=== PATIENT | male | born 1980 | race Caucasian/White ===

== ENCOUNTER 2025-02-24 08:16 | Outpatient (OUT) | payer BC, SELFPAY ==
--- OUTSIDE RECORDS SUMMARY | 2025-02-17 14:15 | XMS_ITS | Encounter Summary ---
Author Organization [facility] Address [address] [place] [address] Care Team Providers Care Fisher Diver Net Name Role Phone Kristian Pate MD Primary Care Provider [phone] Reason for Referral * Medications - Authorized Specialty Diagnoses / Procedures Referred By Jessica head Referred To Contact Diagnoses Class 3 severe obesity due to excess calories with serious comorbidity and body mass index (BMI) of 45.0 to 49.9 in adult ([facility]) Kristian Pate MD [address] [place] [address] Phone: tel: fax: Referral ID Status Reason Start Date Expiration Date V isits Requested Visits Authorized [id number] Authorized 01/18/2025 02/17/2026 1 1 Reason for Visit * Reason Comments Follow-up Med refillsWeight lo ss options Encounter Details Date Type Department Care Team (Late st Contact Info) Description 02/17/2025 2:15 PM EDT Office Visit [facility] [address] [place] [phone] Kristian Pate MD [address] [place] [address] Annual physical exam (Primary Dx); JJ (generalized anxiety disorder) ; Class 3 severe obesity due to excess calories with serious comorbidity and body mass index (BMI) of 45.0 to 49.9 in adult ([facility]) Social History Tobacco Use Types Packs/Day Years Used Date Smoking Tobacco: Never Smokeless Tobacco: Never Tobacco Cessation:Counseling Given: Not Answered Sex and Gender Information Value Date Recorded Sex Assigned at Not on file Legal Sex Male 7:08 PM EDT Gender Identity Not on file Sexual Orientation Not on file documented as of this encounter Last Filed Vital Signs Vital Sign Reading Time Taken Comments Blood Pressure 136/78 02/17/2025 2:31 PM EDT Pulse 82 02/17/2025 2:31 PM EDT Temperature 36.4 C (97.5 F) 02/17/2025 2:31 PM EDT Respiratory Rate 22 02/17/2025 2:31 PM EDT Oxygen Saturation 98% 02/17/2025 2:31 PM EDT Inhaled Oxygen Concentration - - Weight 141 kg (311 lb) 02/17/2025 2:31 PM EDT Height 172.7 cm (5' 8 ) 02/17/2025 2:31 PM EDT Body Mass Index 47.29 02/17/2025 2:31 PM EDT documented in this encounter Progress Notes * Kristian Pate MD - 02/17/2025 3:42 PM EDTAssociated Problem(s): JJ (generalized anxiety disorder) Symptoms slightly worse and increase celexa. * Kristian Pate MD - 02/17/2025 3:42 PM EDTAssociated Problem(s): Class 3 severe obesity due to excess calories with serious comorbidity and body mass index (BMI) of 45.0 to 49.9 in adult ([facility]) Discussed proper diet and regular aerobic exercise. Recommend Weight Watchers and need to limit calories and smaller portions. Need to increase activity and regular aerobic exercise several days a week for 30 minutes at a time. Try wegovy. * Kristian Pate MD - 02/17/2025 3:42 PM EDTAssociated Problem(s): Annual physical exam Due for labs. Discussed proper diet and regular aerobic exercise. Need aerobic exercise 5-6 days a week for 30 minutes at a time. Smaller portions and limit total calories. Colonoscopy after age 45. Tetanus every 10 years. Advised not to smoke. * Kristian Pate MD - 02/17/2025 2:15 PM EDT Images from the original note were not included. Subjective Patient ID: Emre Cruz is a 44 y.o. male who presents for Follow-up (Med refills/Weight loss options). Presents for annual PE. Last seen 08/02/2020. Overall doing okay. Recently started to exercise and weight down 20 pounds. Tries to watch diet and eat healthy. Increased fruits and vegetables. Smaller portions and limits snacking. Tries to limit total daily calories. Interested in medication for weight loss. Due for labs. Anxiety stable. Not as stressed out or overwhelmed. Not as nervous or worry as much. Not as [place] or irritable. Still occasional symptoms and wants to try higher dose celexa. Review of Systems Constitutional: Negative for fatigue. Respiratory: Negative for cough, shortness of breath and wheezing. Cardiovascular: Negative for chest pain and palpitations. Gastrointestinal: Negative for abdominal pain, diarrhea, nausea and vomiting. Genitourinary: Negative for dysuria. Objective Physical Exam Constitutional: General: He is not in acute distress. Appearance: Normal appearance. HENT: Head: Normocephalic. Right Ear: Tympanic membrane and ear canal normal. Left Ear: Tympanic membrane and ear canal normal. Eyes: Extraocular Movements: Extraocular movements intact. Pupils: Pupils are equal, round, and reactive to light. Cardiovascular: Rate and Rhythm: Normal rate and regular rhythm. Heart sounds: No murmur heard. No friction rub. No gallop. Pulmonary: Breath sounds: Normal breath sounds. No wheezing, rhonchi or rales. Abdominal: General: Bowel sounds are normal. There is no distension. Palpations: Abdomen is soft. Tenderness: There is no abdominal tenderness. There is no guarding or rebound. Musculoskeletal: General: Normal range of motion. Left lower leg: No edema. Neurological: General: No focal deficit present. Mental Status: He is alert. Cranial Nerves: No cranial nerve deficit. Deep Tendon Reflexes: Reflexes normal. Assessment/Plan Problem List Items Addressed This Visit JJ (generalized anxiety disorder) Symptoms slightly worse and increase celexa. Relevant Medications citalopram (CeleXA) 40 MG tablet Class 3 severe obesity due to excess calories with serious comorbidity and body mass index (BMI) of45.0 to 49.9 in adult ([facility]) Discussed proper diet and regular aerobic exercise. Recommend Weight Watchers and need to limit calories and smaller portions. Need to increase activity and regular aerobic exercise several days a week for 30 minutes at a time. Try wegovy. Relevant Medications Semaglutide-Weight Management (Wegovy) 0.25 MG/0.5ML solution auto-injector Annual physical exam - Primary Due for labs. Discussed proper diet and regular aerobic exercise. Need aerobic exercise 5-6 days a week for 30 minutes at a time. Smaller portions and limit total calories. Colonoscopy after age 45. Tetanus every 10 years. Advised not to smoke. Relevant Orders Hemoglobin A1c Basic metabolic panel CBC and differential Hepatic function panel Lipid panel TSH PSA documented in this encounter Plan of Treatment Upcoming Encounters Date Type Department Care Team (Late st Contact Info) Description 05/20/2025 9:30 AM EST Office Visit [facility] [address] [place] [address] Kristian Pate MD [address] [place] [address] Scheduled Orders Name Type Priority Associated Diagnoses Orde r Schedule Hemoglobin A1c Lab Routine Annual physical exam Expected: 02/17/2025 (Approximate), Expires: 02/17/2026 Basic metabolic panel Lab Routine Annual physical exam Expected: 02/17/2025 (Approximate), Expires: 02/17/2026 CBC and differential Lab Routine Annual physical exam Expected: 02/17/2025 (Approximate), Expires: 02/17/2026 Hepatic function panel Lab Routine Annual physical exam Expected: 02/17/2025 (Approximate), Expires: 02/17/2026 Lipid panel Lab Routine Annual physical exam Expected: 02/17/2025 (Approximate), Expires: 02/17/2026 TSH Lab Routine Annual physical exam Expected: 02/17/2025 (Approximate), Expires: 02/17/2026 PSA Lab Routine Annual physical exam Expected: 02/17/2025 (Approximate), Expires: 02/17/2026 documented as of this encounter Visit Diagnoses Diagnosis Annual physical exam- Primary Routine general medical examination at a health care facility JJ (generalized anxiety disorder) Generalized anxiety disorder Class 3 severe obesity due to excess calories with serious comorbidity and body mass index (BMI) of 45.0 to 49.9 in adult ([facility]) documented in this encounter Care Teams Fisher Diver Net Relationship Specialty Start Date End Date Kristian Pate MD [address] [place] [address] PCP - General Family Medicine 02/13/25 documented as of this encounter
--- OUTSIDE RECORDS SUMMARY | 2025-02-24 08:19 | XMS_ITS | Clinical Summary ---
Author Organization [facility] Address [address] [place] [address] Care Team Providers Care Washcloth Folder Name Role Phone Kristian Pate MD Primary Care Provider [phone] Allergies No known active allergies Medications Semaglutide-Weig ht Management (Wegovy) 0.25 MG/0.5ML solution auto-injectorInd ications:Class 3 severe obesity due to excess calories with serious comorbidity and body mass index (BMI) of 45.0 to 49.9 in adult ([facility]) Inject 0.25 mg under the skin 1 (one) time per week 2 mL 5 Active citalopram (CeleXA) 40 MG tabletIndication s:JJ (generalized anxiety disorder) Take 1 tablet (40 mg) by mouth Daily 30 tablet 5 5 Active citalopram (CeleXA) 20 MG tabletIndication s:Generalized anxiety disorder Take 1 tablet (20 mg) by mouth Daily 30 tablet 11 4 02/18/20 25 Discontinu ed(Reorder ) Active Problems Problem Noted Date Diagnosed Date Prediabetes 02/17/2025 JJ (generalized anxiety disorder) 02/17/2025 Assessment & Plan (02/17/2025 3:42 PM EDT): Symptoms slightly worse and increase celexa. Class 3 severe obesity due t o excess calories with serious comorbidity and body mass index (BMI) of 45.0 to 49.9 in adult 02/17/2025 Assessment & Plan (02/17/2025 3:42 PM EDT): Discussed proper diet and regular aerobic exercise. Recommend Weight Watchers and need to limit calories and smaller portions. Need to increase activity and regular aerobic exercise several days a week for 30 minutes at a time. Try wegovy. Annual physical exam 02/17/2025 Assessment & Plan (02/17/2025 3:42 PM EDT): Due for labs. Discussed proper diet and regular aerobic exercise. Need aerobic exercise 5-6 days a week for 30 minutes at a time. Smaller portions and limit total calories. Colonoscopy after age 45. Tetanus every 10 years. Advised not to smoke. Encounters Date Type Department Care Team Description 02/17/2025 2:15 PM EDT Office Visit [facility] [address] [place] [address] Kristian Pate MD Annual physical exam (Primary Dx); JJ (generalized anxiety disorder) ; Class 3 severe obesity due to excess calories with serious comorbidity and body mass index (BMI) of 45.0 to 49.9 in adult ([facility]) 02/17/2025 Refill [facility] [address] [place] [address] Kristian Pate MD Generalized anxiety disorder 02/13/2025 Refill [facility] [address] [place] [address] Kristian Pate MD Generalized anxiety disorder 12/19/2024 Refill [facility] [address] [place] [address] Kristian Pate MD 12/16/[address] [facility] [address] [place] [address] Kristian Pate MD from Last 3 Months Social History Tobacco Use Types Packs/Day Years Used Date Smoking Tobacco: Never Smokeless Tobacco: Never Tobacco Cessation:Counseling Given: Not Answered Sex and Gender Information Value Date Recorded Sex Assigned at Not on file Legal Sex Male 7:08 PM EDT Gender Identity Not on file Sexual Orientation Not on file Last Filed Vital Signs Vital Sign Reading [...] Mass Index 47.29 02/17/2025 2:31 PM EDT Plan of Treatment Upcoming Encounters Date Type Department Care Team (Late st Contact Info) Description 05/20/2025 9:30 AM EST Office Visit [facility] [address] [place] [phone] Kristian Pate MD [address] [place] [address] Health Maintenance Due Date Last Done Comments Influenza Vaccine (#1) 2025 04/28/2016 Insurance Care Teams Washcloth Folder Relationship Specialty Start Date End Date Kristian Pate MD [address] [place] [address] PCP - General Family Medicine 02/13/25
--- OUTSIDE RECORDS SUMMARY | 2025-02-24 08:19 | XMS_ITS | Clinical Summary ---
Author Organization [employer] tem Address [id number] [address] [place] [address] Care Team Providers Care Carbon Blocks Press Operator Name Role Phone Kristian Pate MD Primary Care Provider [phone] Allergies No known active allergies Medications No known medications Social History Tobacco Use Types Packs/Day Years Used Date Smoking Tobacco: Never Smokeless Tobacco: Never Alcohol Use Standard Drinks/Week Comments Not Currently 0 (1 standard drink = 0.6 oz pur e alcohol) Childcare Answer Date Recorded Childcare Unknown 12/26/2018 Employment Answer Date Recorded Employment Unknown 12/26/2018 Sex and Gender Information Value Date Recorded Sex Assigned at Not on file Legal Sex Male 11:29 AM EDT Gender Identity Not on file Sexual Orientation Not on file Last Filed Vital Signs Vital Sign Reading Time Taken Comments Blood Pressure 143/81 03/24/2021 2:10 AM EDT Pulse 97 03/24/2021 2:10 AM EDT Temperature 37.8 C (100 F) 03/23/2021 8:17 PM EDT Respiratory Rate 17 03/24/2021 12:40 AM EDT Oxygen Saturation 94% 03/24/2021 2:10 AM EDT Inhaled Oxygen Concentration - - Weight 136.1 kg (300 lb) 03/23/2021 8:17 PM EDT Height 172.7 cm (5' 8 ) 03/23/2021 8:17 PM EDT Body Mass Index 45.61 03/23/2021 8:17 PM EDT Plan of Treatment Health Maintenance Due Date Last Done Comments Depression Screening 1992 Tobacco Screening 1992 Adult BMI Screening 1998 DTaP,Tdap and Td Vaccines (1 - Tdap) 1999 Influenza Vaccine 03/17/2025 04/28/2016 Medical Devices Not on file Insurance [employer] Care Teams Carbon Blocks Press Operator Relationship Specialty Start Date End Date Kristian Pate MD PCP - General Family Medicine 03/23/21
--- OUTSIDE RECORDS SUMMARY | 2025-02-24 08:19 | XMS_ITS | Encounter Summary ---
Author Organization [facility] Address [address] [place] [id number] Care Team Providers Care Account Executive Trainee Name Role Phone Kristian Pate MD Primary Care Provider [phone] Reason for Visit * Reason Onset Date Comments Med Refill 02/13/2025 Encounter Details Date Type Department Care Team (Late Contact Info) Description 02/13/2025 [facility]ill [facility] [address] [place] [address] Kristian Pate MD [address] [place] [address] Generalized anxiety disorder Social History Tobacco Use Types Packs/Day Years Used Date Smoking Tobacco: Never Assessed Sex and Gender Information Value Date Recorded Sex Assigned at Not on file Legal Sex Male 7:08 PM EDT Gender Identity Not on file Sexual Orientation Not on file documented as of this encounter Plan of Treatment Upcoming Encounters Date Type Department Care Team (Late Contact Info) Description 05/20/2025 9:30 AM EST Office Visit [facility] [address] [place] [phone] Kristian Pate MD [address] [place] [address] documented as of this encounter Visit Diagnoses Diagnosis Generalized anxiety disorder Generalized anxiety disorder documented in this encounter Care Teams Account Executive Trainee Relationship Specialty Start Date End Date Kristian Pate MD [address] [place] [address] PCP - General Family Medicine 02/13/25 documented as of this encounter
--- OUTSIDE RECORDS SUMMARY | 2025-02-24 08:19 | XMS_ITS | Encounter Summary ---
Author Organization [facility] Address [address] [place] [address] Care Team Providers Care Makeup Sales Consultant Name Role Phone Kristian Pate MD Primary Care Provider [phone] Reason for Visit * Reason Onset Date Comments Med Refill 02/17/2025 Encounter Details Date Type Department Care Team (Late Contact Info) Description 02/17/2025 Refill [facility] [address] [place] [phone] Kristian Pate MD [address] [place] [address] Generalized anxiety disorder Social History Tobacco Use Types Packs/Day Years Used Date Smoking Tobacco: Never Smokeless Tobacco: Never Sex and Gender Information Value Date Recorded Sex Assigned at Not on file Legal Sex Male 7:08 PM EDT Gender Identity Not on file Sexual Orientation Not on file documented as of this encounter Plan of Treatment Upcoming Encounters Date Type Department Care Team (Late st Contact Info) Description 05/20/2025 9:30 AM EST Office Visit [facility] [address] [place] [phone] Kristian Pate MD [address] [place] [address] documented as of this encounter Visit Diagnoses Diagnosis Generalized anxiety disorder Generalized anxiety disorder documented in this encounter Care Teams Makeup Sales Consultant Relationship Specialty Start Date End Date Kristian Pate MD [address] [place] [address] PCP - General Family Medicine 02/13/25 documented as of this encounter
[2025-02-24 09:09] LABS: Hematocrit 42.4 % (42.0-54.0); Hemoglobin 14.0 g/dL (14.0-18.0); Immature Granulocytes Abs Auto 0.03 10^3/uL (0.00-0.03); Immature Granulocytes Pct Auto 0.4 % (0.0-0.5); Lymphocytes Absolute Auto 3.5 10^3/uL (1.2-3.8); Mean Corpuscular HGB Conc 33.0 g/dL (29.9-35.2); Mean Corpuscular Hemoglobin 29.0 pg (25.9-34.0); Mean Corpuscular Volume 88.0 fL (80.0-94.0); Platelet Count 220 10^3/uL (150-450); Red Blood Count 4.82 10^6/uL (4.70-6.10); White Blood Count 8.4 10^3/uL (4.0-11.0)
[2025-02-24 09:25] LABS: Alanine Aminotransferase 39 U/L (16-63); Albumin Globulin Ratio 0.9; Albumin Level 3.6 g/dL (3.4-5.0); Alkaline Phosphatase 80 U/L (46-116); Anion Gap 13.3; Aspartate Amino Transferase 20 U/L (15-37); Blood Urea Nitrogen 18.0 mg/dL (7.0-18.0); Calcium 9.1 mg/dL (8.5-10.1); Carbon Dioxide 28.3 mmol/L (21.0-32.0); Chloride 104 mmol/L (98-107); Cholesterol 188 mg/dL (<=200); Estimated GFR (African America >60 (>=60 mL/min/1.73m^2); Estimated GFR (Non-African Ame >60 (>=60 mL/min/1.73m^2); Globulin 4.1 g/dL; Glucose 122 mg/dL (74-106); HDL Cholesterol 36 mg/dL (40-60); Potassium 3.6 mmol/L (3.5-5.1); Sodium 142 mmol/L (136-145); Thyroid Stimulating Hormone 2.927 uIU/mL (0.358-3.740); Total Protein 7.7 g/dL (6.4-8.2); Triglycerides 90 mg/dL (<=150); VLDL CHOLESTEROL 18.0 mg/dL
== END 2025-02-24 08:17 | disposition home or self-care (01) ==
LOC: LAB 08:16
PROVIDERS: PCP Family Medicine; Visit Provider Family Medicine
DX: Z00.00 Encounter for general adult medical examination without abnormal findings (principal)
CPT/HCPCS: 36415; 80048; 80061; 80076; 83036; 84443; 85025; G0103